=== PATIENT | female | born 1940 | race Caucasian/White ===

== ENCOUNTER → 2023-05-01 | Outpatient (CLI) | payer MEDICARE, OTHER ==
--- NOTE | 2023-05-01 15:17 | Diagnostic Imaging Report ---
PROCEDURE: US Thyroid. TECHNIQUE: Multiple real-time grayscale images were obtained of the thyroid in various projections. INDICATION: Hyperthyroidism Right and left lobes of the thyroid gland measure 5.2 x 1.5 x 1.4 cm and 4.5 x 2.1 x 1.9 cm, respectively. There is a dominant mixed echogenicity 1.5 x 2.0 x 1.5 cm nodule in the midportion of the left lobe of thyroid gland. This demonstrates internal blood flow with punctate echogenicity. This is taller than wide. There is an adjacent 0.9 x 0.4 x 0.4 cm cystic area in the upper pole of the left lobe. Punctate calcification is noted in the right lobe without other evidence of dominant mass. Blood flow appears to be unremarkable to the thyroid parenchyma. IMPRESSION: Dominant solid-appearing nodule measuring 1.5 x 2.0 x 1.5 cm in the midportion of the left lobe of the thyroid gland. TI-RADS Category 5; highly suspicious. Consideration should be given to ultrasound-guided biopsy for histologic analysis. Dictated by: Dictated on workstation # [id number]
== END ==
LOC: RAD 11:22
PROVIDERS: ATTEND Internal Medicine
DX: E04.1 Nontoxic single thyroid nodule (principal); E05.90 Thyrotoxicosis, unspecified without thyrotoxic crisis or storm
CPT/HCPCS: 76536